=== PATIENT | female | born 1940 | race Caucasian/White ===

== ENCOUNTER → 2017-02-27 | Outpatient (CLI) | payer MEDICARE, OTHER ==
[~2017-02-27] MED LIST: 00186-0370-20 IH; BACTRIM DS 8001 TA1 PO; CLARITIN10 MG PO; DETROL LA4 PO; FERROUS SULFAT324 MG PO; GABAPENTIN300 MG PO; HCTZ 25MG25 MG PO; IRON325 M2 PO; KLONOPIN 1MG1 M1 PO; MIRALAX PA17 GM/Dose PO; NEURONTIN300 MG/CAP PO; NORCO 325 MG-7.1 TAB PO; PLENDIL10 MG PO; PREMARIN 0.60.625 M1 PO; PRIL40 PO; PRILOSEC 20MG20 MG PO; PROVIGIL200 MG PO; QUESTRAN4 GM/9 GM PO; SINEMET 25-1001 TAB PO; SINEMET 25/101 UDTAB PO; SPIRONOLACTONE25 MG PO; SULFASALAZINE500 M1 PO; SYNTHROID0.1 MG PO; SYNTHROID0.125 MG/T PO; ULTRAM 50MG TAB50 MG PO; ULTRAM50 MG PO; VITAMIN B650 MG PO; VITAMIN C500 MG PO; VITAMIN D2000 I1 PO; VITAMIND3 5000 PO; XARELTO10 MG PO; ZOLOFT100 MG PO; ZYRTEC 10MG10 MG PO; [UNRECOGNIZED DRUG - REMARK]
== END ==
LOC: MHCPAIN 11:36
DX: G89.29 Other chronic pain (principal); M47.27 Other spondylosis with radiculopathy, lumbosacral region; M53.3 Sacrococcygeal disorders, not elsewhere classified; M41.9 Scoliosis, unspecified; M79.1 Myalgia
CPT/HCPCS: G0463

== ENCOUNTER 2017-05-10 13:15 | Outpatient (RCR) | payer MEDICARE, OTHER | END 2017-06-06 15:24 | disposition still patient (30) | LOC: WSPT 13:15 | DX: M41.85 Other forms of scoliosis, thoracolumbar region (principal); M79.1 Myalgia; Z98.1 Arthrodesis status | CPT/HCPCS: G8978-GP; G8979-GP; G8980-GP ==

== ENCOUNTER → 2018-03-27 | Outpatient (RCR) | payer MEDICARE, OTHER | END | disposition home or self-care (01) | LOC: WSST | DX: R41.3 Other amnesia (principal); R48.9 Unspecified symbolic dysfunctions | CPT/HCPCS: G9168-GN; G9169-GN ==

== ENCOUNTER 2018-04-24 13:15 | Outpatient (RCR) | payer MEDICARE, OTHER | END 2018-04-25 11:17 | disposition home or self-care (01) | LOC: WSST 13:15 | DX: R41.3 Other amnesia (principal) | CPT/HCPCS: G9168-GN; G9169-GN ==

== ENCOUNTER 2018-06-06 14:57 | Emergency (ER) | payer MEDICARE, OTHER ==
[~2018-06-06] VITALS: Ht 170.2 cm; Wt 72.7 kg
[2018-06-06 14:59] VITALS: TEMP 97.9
[2018-06-06] MEDS ORDERED: NORCO 325 MG-51 TAB PO (16:02)
[2018-06-06 17:03] VITALS: BP 116/62; PULSE 55
== END 2018-06-06 17:03 | disposition home or self-care (01) ==
LOC: COL.ER 14:57
DX: S82.62XA Displaced fracture of lateral malleolus of left fibula, initial encounter for closed fracture (principal); S82.832A Other fracture of upper and lower end of left fibula, initial encounter for closed fracture; J44.9 Chronic obstructive pulmonary disease, unspecified; G20 Parkinson's disease; G62.9 Polyneuropathy, unspecified; Z98.890 Other specified postprocedural states; W06.XXXA Fall from bed, initial encounter; Y92.009 Unspecified place in unspecified non-institutional (private) residence as the place of occurrence of the external cause
CPT/HCPCS: Q4045

== ENCOUNTER 2018-06-06 18:46 | Inpatient (IN) | payer MEDICARE, OTHER ==
[~2018-06-06] VITALS: Ht 170.2 cm; Wt 75.7 kg
[~2018-06-06 18:46] MED LIST changes: +NORCO 325 MG-51 TAB PO; +ZOLOFT 100MG100 MG PO; -ZOLOFT100 MG PO
[2018-06-06 19:06] LABS: HEMOGLOBIN 10.3 g/dl (12.5-16.0); MEAN CELL VOLUME 95 fl (80.0-100.0); MEAN CORPUSCULAR HEMOGLOBIN 31 pg (27.0-31.0); MEAN CORPUSCULAR HGB CONC 33 g/dl (33.0-37.0); PLATELET COUNT 102 K/mm3 (130-400); RED BLOOD COUNT 3.28 M/mm3 (4.10-5.30); REDCELL DISTRIBUTION WIDTH-CV 15.2 % (11.5-14.5)
[2018-06-06 19:10] LABS: ALANINE AMINOTRANSFERASE 26 U/L (9-52); ALBUMIN 3.2 gm/dL (3.5-5.0); ALKALINE PHOSPHATASE 41 U/L (50-136); ANION GAP 8 mmol/L (7-16); AST,SGOT 25 U/L (15-37); BILIRUBIN,TOTAL 0.4 mg/dL (0.0-1.0); BLOOD UREA NITROGEN 12 mg/dL (7-17); CALCIUM 8.4 mg/dL (8.4-10.2); CARBON DIOXIDE 25 mmol/L (22-30); CHLORIDE 105 mmol/L (98-107); CREATININE, serum 0.58 mg/dL (0.52-1.25); GLUCOSE 107 mg/dL (74-106); POTASSIUM 3.4 mmol/L (3.4-5.0); SODIUM 138 mmol/L (137-145); TOTAL PROTEIN 6.3 gm/dL (6.4-8.2)
[2018-06-06 19:11] LABS: HEMATOCRIT 31.3 % (37.0-47.0)
[2018-06-06 19:15] LABS: INR 1.1 (0.8-3.0)
[2018-06-06 19:18] LABS: PARTIAL THROMBOPLASTIN TIME 30.3 SECONDS (26.0-37.0)
[2018-06-06 19:20] LABS: TROPONIN-I < 0.012 ng/mL (0.000-0.034)
[2018-06-06 19:34] LABS: BAND 15 % (0-10); LYMPHOCYTE 37 % (20.0-51.0); METAMYELOCYTE 4 % (0-0); MYELOCYTE 1 % (0-0); NEUTROPHILS 39 % (42.0-75.2)
[2018-06-06 19:35] LABS: PLATELET ESTIMATE NORMAL (NORMAL)
[2018-06-06 20:48] VITALS: BP 99/65; PULSE 52
[2018-06-06 21:33] VITALS: BP 97/51; PULSE 60
[2018-06-06 21:42] LABS: COLLECTION METHOD CLEAN CATCH
[2018-06-06 21:51] LABS: MUCOUS Present /lpf; PH 5 (5-8); URINE APPEARANCE Hazy; URINE BACTERIA Rare /hpf; URINE BILIRUBIN Negative (NEGATIVE); URINE BLOOD Negative (NEGATIVE); URINE COLOR Yellow; URINE GLUCOSE Negative (NEGATIVE); URINE KETONE Negative (NEGATIVE); URINE LEUKOCYTE ESTERASE Negative (NEGATIVE); URINE NITRATE Negative (NEGATIVE); URINE PROTEIN(semi-quant) Negative (NEGATIVE); URINE UROBILINOGEN Negative (NEGATIVE)
[2018-06-07] VITALS (7 sets, daily range): BP systolic 88–112; BP diastolic 31–46; PULSE 49–64; TEMP 97.4–99.1
[2018-06-07 07:26] LABS: MEAN CELL VOLUME 98 fl (80.0-100.0); MEAN CORPUSCULAR HGB CONC 32 g/dl (33.0-37.0); MEAN PLATELET VOLUME 12.6 fl (7.4-10.4); PLATELET COUNT 84 K/mm3 (130-400); REDCELL DISTRIBUTION WIDTH-CV 15.5 % (11.5-14.5)
[2018-06-07 07:29] LABS: CALCIUM 7.8 mg/dL (8.4-10.2); CREATININE, serum 0.58 mg/dL (0.52-1.25); POTASSIUM 4.3 mmol/L (3.4-5.0)
[2018-06-07 07:32] LABS: HEMATOCRIT 29.3 % (37.0-47.0); HEMOGLOBIN 9.3 g/dl (12.5-16.0); MEAN CORPUSCULAR HEMOGLOBIN 31 pg (27.0-31.0)
[2018-06-07 07:58] LABS: TSH w REFLEX 2.31 uIU/mL (0.465-4.680)
[2018-06-07 10:09] LABS: BAND 4 % (0-10); LYMPHOCYTE 29 % (20.0-51.0); NEUTROPHILS 51 % (42.0-75.2)
[2018-06-07 10:10] LABS: HYPOCHROMIA 2+; PLATELET ESTIMATE DECREASED (NORMAL)
[2018-06-08] VITALS (8 sets, daily range): BP systolic 108–133; BP diastolic 38–82; PULSE 61–86; TEMP 97.7–99.6
[2018-06-08 13:47] LABS: MEAN CELL VOLUME 97 fl (80.0-100.0); MEAN CORPUSCULAR HGB CONC 32 g/dl (33.0-37.0); MEAN PLATELET VOLUME 12.4 fl (7.4-10.4); PLATELET COUNT 87 K/mm3 (130-400); RED BLOOD COUNT 3.12 M/mm3 (4.10-5.30); REDCELL DISTRIBUTION WIDTH-CV 16.1 % (11.5-14.5)
[2018-06-08 13:49] LABS: HEMATOCRIT 30.3 % (37.0-47.0); HEMOGLOBIN 9.7 g/dl (12.5-16.0); MEAN CORPUSCULAR HEMOGLOBIN 31 pg (27.0-31.0)
[2018-06-08 14:08] LABS: ANISOCYTOSIS 1+; BAND 11 % (0-10); LYMPHOCYTE 25 % (20.0-51.0); METAMYELOCYTE 8 % (0-0); MYELOCYTE 1 % (0-0); NEUTROPHILS 48 % (42.0-75.2)
[2018-06-08 14:32] LABS: CALCIUM 8.1 mg/dL (8.4-10.2); CREATININE, serum 0.53 mg/dL (0.52-1.25)
[2018-06-08 14:50] LABS: POTASSIUM 2.9 mmol/L (3.4-5.0)
[2018-06-08 16:18] LABS: MAGNESIUM 1.7 mg/dL (1.6-2.3)
[2018-06-09] VITALS (9 sets, daily range): BP systolic 90–126; BP diastolic 37–66; PULSE 57–99; TEMP 10.6
[2018-06-09 06:28] LABS: MEAN CELL VOLUME 94 fl (80.0-100.0); MEAN CORPUSCULAR HGB CONC 33 g/dl (33.0-37.0); MEAN PLATELET VOLUME 12.4 fl (7.4-10.4); PLATELET COUNT 77 K/mm3 (130-400)
[2018-06-09 06:30] LABS: HEMATOCRIT 26.3 % (37.0-47.0); HEMOGLOBIN 8.7 g/dl (12.5-16.0); MEAN CORPUSCULAR HEMOGLOBIN 31 pg (27.0-31.0)
[2018-06-09 06:39] LABS: CALCIUM 7.5 mg/dL (8.4-10.2); CREATININE, serum 0.56 mg/dL (0.52-1.25)
[2018-06-09 06:42] LABS: POTASSIUM 2.9 mmol/L (3.4-5.0)
[2018-06-09 07:02] LABS: BAND 6 % (0-10); LYMPHOCYTE 31 % (20.0-51.0); METAMYELOCYTE 4 % (0-0); NEUTROPHILS 18 % (42.0-75.2); PLATELET ESTIMATE DECREASED (NORMAL)
[2018-06-09 07:03] LABS: STOMATOCYTE 1+
[2018-06-09 20:29] LABS: COLLECTION METHOD CLEAN CATCH
[2018-06-09 20:39] LABS: MUCOUS Present /lpf; PH 5 (5-8); SQUAMOUS EPITHELIAL 0-2 /hpf; URINE APPEARANCE Clear; URINE BACTERIA None Seen /hpf; URINE BILIRUBIN Negative (NEGATIVE); URINE BLOOD 2+ (NEGATIVE); URINE COLOR Yellow; URINE GLUCOSE Negative (NEGATIVE); URINE KETONE Negative (NEGATIVE); URINE LEUKOCYTE ESTERASE Negative (NEGATIVE); URINE NITRATE Negative (NEGATIVE); URINE PROTEIN(semi-quant) 1+ (NEGATIVE); URINE RBC 0-2 /hpf; URINE UROBILINOGEN Negative (NEGATIVE); URINE WBC 0-2 /hpf
[2018-06-10] VITALS (9 sets, daily range): BP systolic 98–118; BP diastolic 34–51; PULSE 64–80; TEMP 97.4–103
[2018-06-10 01:24] LABS: CREATININE, serum 0.57 mg/dL (0.52-1.25)
[2018-06-10 07:42] LABS: MEAN CELL VOLUME 97 fl (80.0-100.0); MEAN CORPUSCULAR HGB CONC 32 g/dl (33.0-37.0); MEAN PLATELET VOLUME 12.4 fl (7.4-10.4); PLATELET COUNT 74 K/mm3 (130-400); RED BLOOD COUNT 2.77 M/mm3 (4.10-5.30); REDCELL DISTRIBUTION WIDTH-CV 16.2 % (11.5-14.5)
[2018-06-10 07:44] LABS: HEMATOCRIT 26.9 % (37.0-47.0); HEMOGLOBIN 8.5 g/dl (12.5-16.0); MEAN CORPUSCULAR HEMOGLOBIN 31 pg (27.0-31.0)
[2018-06-10 07:56] LABS: CALCIUM 7.8 mg/dL (8.4-10.2); CREATININE, serum 0.53 mg/dL (0.52-1.25); POTASSIUM 3.7 mmol/L (3.4-5.0)
[2018-06-10 08:02] LABS: LYMPHOCYTE 22 % (20.0-51.0); NEUTROPHILS 28 % (42.0-75.2)
[2018-06-10 08:03] LABS: ANISOCYTOSIS 1+; HYPOCHROMIA 2+; PLATELET ESTIMATE DECREASED (NORMAL)
[2018-06-11] VITALS (8 sets, daily range): BP systolic 94–114; BP diastolic 41–61; PULSE 60–75; TEMP 97.4–99.8
[2018-06-11 06:11] LABS: MEAN CELL VOLUME 97 fl (80.0-100.0); MEAN CORPUSCULAR HGB CONC 31 g/dl (33.0-37.0); MEAN PLATELET VOLUME 12.5 fl (7.4-10.4); PLATELET COUNT 94 K/mm3 (130-400); REDCELL DISTRIBUTION WIDTH-CV 16.3 % (11.5-14.5)
[2018-06-11 06:12] LABS: HEMATOCRIT 26.3 % (37.0-47.0); HEMOGLOBIN 8.2 g/dl (12.5-16.0); MEAN CORPUSCULAR HEMOGLOBIN 30 pg (27.0-31.0)
[2018-06-11 06:23] LABS: CALCIUM 8.2 mg/dL (8.4-10.2); CREATININE, serum 0.6 mg/dL (0.52-1.25); POTASSIUM 4.1 mmol/L (3.4-5.0)
[2018-06-11 06:55] LABS: BAND 9 % (0-10); LYMPHOCYTE 16 % (20.0-51.0); METAMYELOCYTE 2 % (0-0); NEUTROPHILS 49 % (42.0-75.2); PLATELET ESTIMATE DECREASED (NORMAL)
[2018-06-11 06:56] LABS: HYPOCHROMIA 2+
[2018-06-11 08:45] LABS: PATHOLOGY DIFF REVIEW OK
[2018-06-11 14:57] LABS: FOLATE (FOLIC ACID) 9.8 ng/mL (7.0-31.4)
[2018-06-11 16:59] LABS: COMPLEMENT-C3 113 mg/dL (79-152); COMPLEMENT-C4 10 mg/dL (18-55)
[2018-06-12] VITALS: BP 115/51; PULSE 77; TEMP 100.8
[2018-06-12 04:00] VITALS: BP 106/39; PULSE 61; TEMP 98.8
[2018-06-12 06:33] LABS: MEAN CELL VOLUME 96 fl (80.0-100.0); MEAN CORPUSCULAR HGB CONC 32 g/dl (33.0-37.0); MEAN PLATELET VOLUME 11.8 fl (7.4-10.4); PLATELET COUNT 127 K/mm3 (130-400)
[2018-06-12 06:39] LABS: CALCIUM 8.2 mg/dL (8.4-10.2); CREATININE, serum 0.57 mg/dL (0.52-1.25); POTASSIUM 3.3 mmol/L (3.4-5.0)
[2018-06-12 06:43] LABS: HEMATOCRIT 25.9 % (37.0-47.0); HEMOGLOBIN 8.2 g/dl (12.5-16.0); MEAN CORPUSCULAR HEMOGLOBIN 30 pg (27.0-31.0)
[2018-06-12 07:25] LABS: ANISOCYTOSIS 1+; BAND 1 % (0-10); BASOPHIL 1 % (0-2); LYMPHOCYTE 28 % (20.0-51.0); NEUTROPHILS 44 % (42.0-75.2); PLATELET ESTIMATE DECREASED (NORMAL)
[2018-06-12 07:26] LABS: HYPOCHROMIA 1+; TOXIC GRANULATION PRESENT
[2018-06-12 07:28] LABS: POLYCHROMASIA 1+
[2018-06-12 08:27] VITALS: BP 97/42; PULSE 63; TEMP 97.7
[2018-06-12 11:27] VITALS: BP 117/46; PULSE 57; TEMP 97.7
[2018-06-12 16:41] VITALS: BP 123/50; PULSE 60; TEMP 98.4
[2018-06-12 20:00] VITALS: BP 139/72; PULSE 66; TEMP 98.5
[2018-06-13] VITALS (13 sets, daily range): BP systolic 93–144; BP diastolic 43–66; PULSE 60–79; TEMP 97.7–99.1
[2018-06-13 11:09] LABS: MEAN CELL VOLUME 97 fl (80.0-100.0); MEAN CORPUSCULAR HGB CONC 32 g/dl (33.0-37.0); MEAN PLATELET VOLUME 11.6 fl (7.4-10.4); PLATELET COUNT 167 K/mm3 (130-400); RED BLOOD COUNT 2.85 M/mm3 (4.10-5.30); REDCELL DISTRIBUTION WIDTH-CV 15.7 % (11.5-14.5)
[2018-06-13 11:10] LABS: HEMATOCRIT 27.6 % (37.0-47.0); HEMOGLOBIN 8.9 g/dl (12.5-16.0); MEAN CORPUSCULAR HEMOGLOBIN 31 pg (27.0-31.0)
[2018-06-13 11:19] LABS: CALCIUM 7.9 mg/dL (8.4-10.2); CREATININE, serum 0.54 mg/dL (0.52-1.25); MAGNESIUM 1.9 mg/dL (1.6-2.3)
[2018-06-13 12:04] LABS: BAND 12 % (0-10); LYMPHOCYTE 15 % (20.0-51.0); METAMYELOCYTE 2 % (0-0); MYELOCYTE 1 % (0-0); NEUTROPHILS 66 % (42.0-75.2)
[2018-06-13 12:05] LABS: PLATELET ESTIMATE NORMAL (NORMAL)
[2018-06-14 03:51] VITALS: BP 109/50; PULSE 67; TEMP 98.5
[2018-06-14 07:28] LABS: HEMATOCRIT 25.8 % (37.0-47.0); HEMOGLOBIN 8.1 g/dl (12.5-16.0); MEAN CELL VOLUME 97 fl (80.0-100.0); MEAN CORPUSCULAR HEMOGLOBIN 31 pg (27.0-31.0); MEAN CORPUSCULAR HGB CONC 31 g/dl (33.0-37.0); MEAN PLATELET VOLUME 11.4 fl (7.4-10.4); PLATELET COUNT 185 K/mm3 (130-400); RED BLOOD COUNT 2.65 M/mm3 (4.10-5.30); REDCELL DISTRIBUTION WIDTH-CV 15.9 % (11.5-14.5)
[2018-06-14 07:44] LABS: CALCIUM 7.9 mg/dL (8.4-10.2); CREATININE, serum 0.58 mg/dL (0.52-1.25); POTASSIUM 3.5 mmol/L (3.4-5.0)
[2018-06-14 07:47] LABS: BAND 5 % (0-10); LYMPHOCYTE 28 % (20.0-51.0); NEUTROPHILS 41 % (42.0-75.2)
[2018-06-14 07:48] LABS: HYPOCHROMIA 2+; PLATELET ESTIMATE NORMAL (NORMAL)
[2018-06-14 08:00] VITALS: BP 100/36; PULSE 71; TEMP 98
[2018-06-14 13:46] VITALS: BP 103/46; PULSE 54; TEMP 97.4
[2018-06-14] MEDS ORDERED: NEURONTIN600 MG/TAB PO (14:19)
== END 2018-06-14 13:10 | DRG 261 ==
LOC: COL.ER 18:46 → SURG 20:57
PROVIDERS: Emergency Medicine; Family Medicine; Hospitalist; Internal Medicine; Nurse Practitioner; Nurse Practitioner Family; Physician Assistant
PROC: 0JH602Z Insertion of Monitoring Device into Chest Subcutaneous Tissue and Fascia, Open Approach (ICD-10-PCS; principal; 2018-06-08)
PROC: 0QSK04Z Reposition Left Fibula with Internal Fixation Device, Open Approach (ICD-10-PCS; 2018-06-13)
DX: I95.1 Orthostatic hypotension (principal); J98.11 Atelectasis; J90 Pleural effusion, not elsewhere classified; R00.1 Bradycardia, unspecified; I44.0 Atrioventricular block, first degree; S82.842A Displaced bimalleolar fracture of left lower leg, initial encounter for closed fracture; I27.22 Pulmonary hypertension due to left heart disease; I08.3 Combined rheumatic disorders of mitral, aortic and tricuspid valves; G62.9 Polyneuropathy, unspecified; M21.372 Foot drop, left foot; W01.0XXA Fall on same level from slipping, tripping and stumbling without subsequent striking against object, initial encounter; G25.81 Restless legs syndrome; M32.9 Systemic lupus erythematosus, unspecified; E87.6 Hypokalemia; F64.9 Gender identity disorder, unspecified; D64.9 Anemia, unspecified
CPT/HCPCS: OP; 99223-AI; 99232-AI; 99233-AI; 99238; A9284; C1713; C1764; G0378; G8978-GP; G8979-GP; G8987-GO; G8988-GO; J0690; J0692; J1100; J1650; J1940; J2250; J2270; J2405; J2704; J3010; J3370; J3475; J3480; J7030; J7050; J7120; Q4045; Q9967

== ENCOUNTER 2018-06-14 13:15 | Inpatient (IN) | payer MEDICARE, OTHER ==
[~2018-06-14] VITALS: Ht 170.2 cm; Wt 83.5 kg
[2018-06-14 13:46] VITALS: BP 103/46; PULSE 54; TEMP 97.9
[2018-06-14] MEDS ORDERED: NEURONTIN600 MG/TAB PO (14:19)
[2018-06-14 18:00] VITALS: BP 120/46; PULSE 68; TEMP 98.2
[2018-06-14 18:12] VITALS: BP 103/46; PULSE 54; TEMP 97.9
[2018-06-15 04:45] VITALS: BP 130/59; PULSE 66; TEMP 97.9
[2018-06-15 15:48] VITALS: BP 115/65; PULSE 60; TEMP 97.6
[2018-06-16 04:44] VITALS: BP 133/56; PULSE 66; TEMP 97.9
[2018-06-16 16:21] VITALS: BP 116/66; PULSE 61; TEMP 98.3
[2018-06-17 04:03] VITALS: BP 134/57; PULSE 73; TEMP 97.8
[2018-06-17 17:01] VITALS: BP 140/58; PULSE 73; TEMP 98.7
[2018-06-18 05:51] VITALS: BP 130/64; PULSE 76; TEMP 98.1
[2018-06-18 06:58] LABS: MEAN CELL VOLUME 95 fl (80.0-100.0); MEAN CORPUSCULAR HGB CONC 33 g/dl (33.0-37.0); MEAN PLATELET VOLUME 10.9 fl (7.4-10.4); PLATELET COUNT 248 K/mm3 (130-400); REDCELL DISTRIBUTION WIDTH-CV 15.9 % (11.5-14.5)
[2018-06-18 07:01] LABS: HEMATOCRIT 29.5 % (37.0-47.0); HEMOGLOBIN 9.7 g/dl (12.5-16.0); MEAN CORPUSCULAR HEMOGLOBIN 31 pg (27.0-31.0)
[2018-06-18 08:04] LABS: BAND 2 % (0-10); BASOPHIL 1 % (0-2); LYMPHOCYTE 29 % (20.0-51.0); NEUTROPHILS 50 % (42.0-75.2)
[2018-06-18 15:16] VITALS: BP 136/48; PULSE 67; TEMP 98
[2018-06-19 06:18] VITALS: BP 130/54; PULSE 76; TEMP 99.4
[2018-06-19] MEDS ORDERED: ASPI325T6 PO (14:35)
[2018-06-19 15:40] VITALS: BP 129/79; PULSE 72; TEMP 98.4
[2018-06-20 05:06] VITALS: BP 138/68; PULSE 73; TEMP 98.2
[2018-06-20 16:35] VITALS: BP 140/66; PULSE 80; TEMP 98.6
[2018-06-21 04:17] VITALS: BP 115/45; PULSE 67; TEMP 99
[2018-06-21 15:30] VITALS: BP 134/54; PULSE 59; TEMP 97.9
[2018-06-22 04:43] VITALS: BP 128/53; PULSE 64; TEMP 99
[2018-06-22] MEDS ORDERED: TYLENOL 325MG325 MG PO (11:12)
== END 2018-06-22 15:35 | disposition home health service (06) | DRG 561 ==
PROVIDERS: Family Medicine
DX: S82.842D Displaced bimalleolar fracture of left lower leg, subsequent encounter for closed fracture with routine healing (principal); W18.30XD Fall on same level, unspecified, subsequent encounter; M32.9 Systemic lupus erythematosus, unspecified; G62.89 Other specified polyneuropathies; G25.81 Restless legs syndrome; D64.9 Anemia, unspecified; E87.6 Hypokalemia
CPT/HCPCS: 99221; 99232-AI; 99239; J1650

== ENCOUNTER 2019-04-02 14:41 | Emergency (ER) | payer MEDICARE, OTHER ==
[~2019-04-02] VITALS: Ht 170.2 cm; Wt 70.0 kg
[~2019-04-02 14:41] MED LIST changes: +ASPI325T6 PO; +NEURONTIN600 MG/TAB PO; +TYLENOL 325MG325 MG PO
[2019-04-02 14:50] VITALS: TEMP 98.1
[2019-04-02 15:44] LABS: BASO % 0.2 % (0.0-2.0); GRAN # 2.5 (1.4-6.5); GRAN % 49.6 % (42.2-75.2); LYMPH # 1.6 (1.2-3.4); LYMPH % 32.1 % (20.0-51.0); MEAN CELL VOLUME 89 fl (80.0-100.0); MEAN CORPUSCULAR HGB CONC 30 g/dl (33.0-37.0); MONO # 0.8 (0.1-0.6); MONO % 16.5 % (1.7-9.3); PLATELET COUNT 161 K/mm3 (130-400); RED BLOOD COUNT 3.43 M/mm3 (4.10-5.30); REDCELL DISTRIBUTION WIDTH-CV 20.4 % (11.5-14.5)
[2019-04-02 15:45] LABS: HEMATOCRIT 30.5 % (37.0-47.0); HEMOGLOBIN 9.2 g/dl (12.5-16.0); MEAN CORPUSCULAR HEMOGLOBIN 27 pg (27.0-31.0)
[2019-04-02] MEDS ORDERED: PREDNISONE20 MG PO (15:57)
[2019-04-02] MEDS ORDERED: KLONOPIN 1MG1 MG PO (16:00)
[2019-04-02 16:01] LABS: ALBUMIN 3.6 gm/dL (3.5-5.0); BILIRUBIN,TOTAL 0.5 mg/dL (0.0-1.0); C-REACTIVE PROTEIN 2.7 mg/dL (0.0-0.9); CALCIUM 9.2 mg/dL (8.4-10.2); CREATININE, serum 0.65 (0.52-1.25); POTASSIUM 3.3 mmol/L (3.4-5.0); TOTAL PROTEIN 6.8 gm/dL (6.4-8.2)
[2019-04-02] MEDS ORDERED: PREMARIN 0.60.625 M1 PO (16:01)
[2019-04-02] MEDS ORDERED: SINEMET 25/101 UDTAB PO (16:02)
[2019-04-02] MEDS ORDERED: 00186-0370-20 INH (16:03)
[2019-04-02 16:37] LABS: TROPONIN-I < 0.012 ng/mL (0.000-0.035)
[2019-04-02 17:09] LABS: COLLECTION METHOD CLEAN CATCH
[2019-04-02 17:17] LABS: PH 7 (5-8); URINE APPEARANCE Clear; URINE BACTERIA None Seen /hpf; URINE BILIRUBIN Negative (NEGATIVE); URINE BLOOD Negative (NEGATIVE); URINE COLOR Yellow; URINE GLUCOSE Negative (NEGATIVE); URINE KETONE Negative (NEGATIVE); URINE LEUKOCYTE ESTERASE Negative (NEGATIVE); URINE NITRATE Negative (NEGATIVE); URINE PROTEIN(semi-quant) 1+ (NEGATIVE); URINE RBC 0-2 /hpf
[2019-04-02 17:41] VITALS: BP 163/79; PULSE 64
== END 2019-04-02 17:41 | disposition home or self-care (01) ==
LOC: COL.ER 14:41
PROVIDERS: Family Medicine
DX: R51 Headache (principal); R53.83 Other fatigue; D64.9 Anemia, unspecified
CPT/HCPCS: J0595; J2405; J7030

== ENCOUNTER 2019-08-27 13:36 | Emergency (ER) | payer MEDICARE, OTHER ==
[~2019-08-27] VITALS: Ht 170.2 cm; Wt 79.1 kg
[~2019-08-27 13:36] MED LIST changes: +00186-0370-20 INH; +KLONOPIN 1MG1 MG PO; +PREDNISONE20 MG PO
[2019-08-27] MEDS ORDERED: NAMENDA 10MG TA10 MG PO (14:17)
[2019-08-27] MEDS ORDERED: CLARITIN 1010 MG/TAB PO (14:19)
[2019-08-27] MEDS ORDERED: FLORINEF ACETA0.1 MG PO ×2 (14:20→14:21)
[2019-08-27] MEDS ORDERED: ARICEPT 5MG PO (14:21)
[2019-08-27 14:40] LABS: HEMATOCRIT 37.7 % (37.0-47.0); HEMOGLOBIN 11.1 g/dl (12.5-16.0); MEAN CELL VOLUME 92 fl (80.0-100.0); MEAN CORPUSCULAR HEMOGLOBIN 27 pg (27.0-31.0); MEAN CORPUSCULAR HGB CONC 29 g/dl (33.0-37.0); PLATELET COUNT 95 K/mm3 (130-400); RED BLOOD COUNT 4.08 M/mm3 (4.10-5.30); REDCELL DISTRIBUTION WIDTH-CV 24.4 % (11.5-14.5)
[2019-08-27 14:53] LABS: ALBUMIN 3.1 gm/dL (3.5-5.0); BILIRUBIN,TOTAL 1.4 mg/dL (0.0-1.0); C-REACTIVE PROTEIN 5.1 mg/dL (0.0-0.9); CALCIUM 8.5 mg/dL (8.4-10.2); CREATININE, serum 0.67 (0.52-1.25); POTASSIUM 3.5 mmol/L (3.4-5.0); TOTAL PROTEIN 6.4 gm/dL (6.4-8.2)
[2019-08-27 14:56] LABS: COLLECTION METHOD CATHETER
[2019-08-27 15:09] LABS: BAND 12 % (0-10); LYMPHOCYTE 41 % (20.0-51.0); METAMYELOCYTE 1 % (0-0); MYELOCYTE 1 % (0-0); NEUTROPHILS 17 % (42.0-75.2); NUCLEATED RED BLOOD CELL 11 (0-6)
[2019-08-27 15:11] LABS: OVALOCYTES 1+; STOMATOCYTE 2+
[2019-08-27 15:12] LABS: ANISOCYTOSIS 2+; HYPOCHROMIA 1+; PLATELET ESTIMATE DECREASED (NORMAL); POIKILOCYTOSIS 1+; POLYCHROMASIA 1+
[2019-08-27 15:13] LABS: MICROCYTOSIS 1+; SPHEROCYTE 1+
[2019-08-27 15:17] LABS: MUCOUS Present /lpf; PH 6 (5-8); SQUAMOUS EPITHELIAL 0-2 /hpf; URINE APPEARANCE Cloudy; URINE BACTERIA Rare /hpf; URINE BILIRUBIN Negative (NEGATIVE); URINE BLOOD 1+ (NEGATIVE); URINE COLOR Yellow; URINE GLUCOSE Negative (NEGATIVE); URINE KETONE Negative (NEGATIVE); URINE LEUKOCYTE ESTERASE 2+ (NEGATIVE); URINE NITRATE Positive (NEGATIVE); URINE PROTEIN(semi-quant) 1+ (NEGATIVE); URINE UROBILINOGEN >=4.0 mg/dL (NEGATIVE)
[2019-08-27 15:27] LABS: CORRECTED WBC 15.4 K/mm3; TEAR DROP CELLS 1+
[2019-08-27 18:47] VITALS: BP 101/51; PULSE 71; TEMP 98.3
[2019-08-28 08:09] LABS: PATHOLOGY DIFF REVIEW OK +
== END 2019-08-27 18:47 | disposition short-term general hospital (02) ==
LOC: COL.ER 13:36
PROVIDERS: Emergency Medicine
DX: S06.360A Traumatic hemorrhage of cerebrum, unspecified, without loss of consciousness, initial encounter (principal); G20 Parkinson's disease; F03.90 Unspecified dementia, unspecified severity, without behavioral disturbance, psychotic disturbance, mood disturbance, and anxiety; W06.XXXA Fall from bed, initial encounter
CPT/HCPCS: J0696; J7030